=== PATIENT | female | born 1970 | race African-American/Black ===

== ENCOUNTER 2020-02-17 16:42 | Observation (INO) | payer OTHER ==
[~2020-02-17] VITALS: Ht 160 cm; Wt 102.1 kg
[2020-02-17] MEDS ORDERED: DIPHENHYDRAMINE HCL INJ 50 MG/ML VIAL IV ONE (17:45)
[2020-02-17] MEDS ORDERED: ONDANSETRON HCL INJ 2MG/ML 2ML 2 MG/ML VIAL IV PRN (17:45)
[2020-02-17] MEDS ORDERED: ACETAMINOPHEN 325 MG TAB PO PRN (17:45)
[2020-02-17] MEDS ORDERED: SODIUM CHLORIDE 0.9% 250ML 250 ML IV ONE (17:45)
[2020-02-17] MEDS ORDERED: ACETAMINOPHEN 325 MG TAB PO ONE (18:00)
[2020-02-17] MEDS ORDERED: FAMOTIDINE 20 MG/2 ML VIAL IV SCH (18:00)
[2020-02-17] MEDS ORDERED: IRON PILLS (18:22)
[2020-02-17] MEDS ORDERED: OMEPRAZOLE20 MG PO (18:22)
--- NOTE | 2020-02-17 19:30 | NUR ---
pt arrived via ems stretcher. pt made comfortable and oriented to rm. no ss of distress noted upon admission. no co pain at time. right ac 20 cdi. hx obtained at time. will cont to follow poc. call carney within reach.
[2020-02-17 20:39] LABS: % IRON SATURATION 3 % (15-50); IRON 11 ug/dL (50-170); TOTAL IRON BINDING CAPACITY 438 ug/dL (261-478); TRANSFERRIN 313 mg/dL (180-382)
[2020-02-17 20:49] VITALS: BP 113/58
[2020-02-17 21:00] VITALS: BP 113/58
[2020-02-17] MEDS ORDERED: ZOLPIDEM TARTRATE 5 MG TAB PO PRN (21:00)
[2020-02-17 21:08] VITALS: BP 113/58
[2020-02-17 21:13] LABS: FERRITIN < 1.00 ng/mL (4.63-204.00)
--- NOTE | 2020-02-17 21:36 | NUR ---
spoke to dr velazquez regarding medication. new orders received.
[2020-02-17] MEDS ORDERED: SODIUM CHLORIDE 0.9% 250ML 250 ML ONE (21:49)
--- NOTE | 2020-02-17 22:15 | NUR ---
blood transfusion initiated at time. nurse in rm first 15 min. no ss of reaction or distress noted. call carney within reach.
[2020-02-18 00:15] VITALS: BP 106/51
--- NOTE | 2020-02-18 00:30 | NUR ---
blood transfusion complete. pt tolerated well. no distress noted. call carney within reach.
--- NOTE | 2020-02-18 01:00 | NUR ---
blood transfusion initiated at time. nurse in rm first 15 min. no ss of reaction or distress noted. call carney within reach.
--- NOTE | 2020-02-18 03:10 | NUR ---
blood transfusion complete. pt tolerated well. no distress noted. call carney within reach.
[2020-02-18 04:24] VITALS: BP 111/55
--- NOTE | 2020-02-18 04:26 | NUR ---
pt resting. no ss of distress noted. call carney within reach.
[2020-02-18 06:12] LABS: BASOPHILS # (AUTO) 0.1 (0.0-0.1); BASOPHILS % 0.9 % (0.0-1.0); EOSINOPHILS # (AUTO) 0.4 (0.0-0.4); EOSINOPHILS % 6.9 % (0.0-6.0); LYMPHOCYTES # (AUTO) 1.7 (1.0-3.2); LYMPHOCYTES % 30.4 % (18.0-39.1); MEAN CORPUSCULAR HGB CONC 25.7 g/dL (31-35); MEAN CORPUSCULAR VOLUME 62.3 fL (81-99); MONOCYTES # (AUTO) 0.6 (0.2-0.8); MONOCYTES % 10.8 % (4.4-11.3); NEUTROPHILS # (AUTO) 2.8 (2.1-6.9); NEUTROPHILS % 50.6 % (38.7-80.0); PLATELET COUNT 321 x10e3/uL (140-360); RED BLOOD COUNT 3.63 x10e6/uL (3.6-5.1); RED CELL DISTRIBUTION WIDTH 28.3 % (11.7-14.4)
[2020-02-18 06:20] LABS: HEMATOCRIT 22.6 % (34.2-44.1); HEMOGLOBIN 5.8 g/dL (12.0-16.0)
--- NOTE | 2020-02-18 06:38 | NUR ---
spoke to dr velazquez regarding lab results. new orders received. will notify oncoming nurse.
--- NOTE | 2020-02-18 07:00 | NUR ---
BEDSIDE SHIFT REPORT RECEIVED FROM THE PREMIX OPERATOR CONCENTRATE RN. EDUCATED PT ABOUT FALL PRECAUTIONS. INSTRUCTED PT TO USE CALL LIGHT FOR ALL THE NEEDS. PT VERBALIZED UNDERSTANDING. CALL LIGHT WITH IN EASY REACH. BED IS LOW AND LOCKED. SIDE RAILS X2. PT DENIES NEEDS AT THIS TIME.
[2020-02-18] MEDS ORDERED: SODIUM CHLORIDE 0.9% 250ML 250 ML IV ONE (07:15)
[2020-02-18 07:36] VITALS: BP 100/48
--- NOTE | 2020-02-18 08:00 | NUR ---
paged lab regarding blood transfusion. lab will call back when blood is ready.
[2020-02-18 09:00] VITALS: BP 100/48
--- NOTE | 2020-02-18 09:50 | NUR ---
NAVEED SCHULTZ REGARDING BLOOD TRANSFUSION ORDER. NOT READY WILL CALL BACK PER MELISSA Addendum: 02/18/20 at 1037 by Hanh Gambino RN WILL CALL BACK PER NEVILLE Monsalve
[2020-02-18] MEDS ORDERED: SODIUM CHLORIDE 0.9% 250ML 250 ML ONE ×2 (11:12→14:42)
--- NOTE | 2020-02-18 11:15 | NUR ---
BLOOD TRANSFUSION STARTED. VERIFICATION DONE BY 2 RN AT BEDSIDE. PT IS OKAY TO START BLOOD TRANSFUSION. PT DENIES NEEDS AT THIS TIME.
[2020-02-18 11:19] VITALS: BP 104/47
[2020-02-18 11:58] LABS: ANISOCYTOSIS SLIGHT; HYPOCHROMASIA SLIGHT
--- NOTE | 2020-02-18 13:45 | NUR ---
BLOOD TRANSFUSION COMPLETED. PT TOLERATED WELL. NO DISTRESS NOTED. PT DENIED FURTHER NEEDS.
--- NOTE | 2020-02-18 15:00 | NUR ---
BLOOD TRANSFUSION STARTED. VERIFICATION DONE BY 2 RN. PT DENIES NEEDS AT THIS TIME.
[2020-02-18 15:30] VITALS: BP 106/53
[2020-02-18] MEDS ORDERED: IRON SUCROSE 100 MG in SODIUM CHLORIDE 0.9% 100 ML 100 ML IV SCH (17:00)
--- NOTE | 2020-02-18 17:45 | NUR ---
BLOOD TRANSFUSION COMPLETED. NO DISTRESS NOTED. PT TOLERATED WELL. PT DENIED FURTHER NEEDS.
[2020-02-18] MEDS ORDERED: SODIUM CHLORIDE 0.9% 50ML 50 ML ONE (18:16)
--- NOTE | 2020-02-18 18:34 | NUR ---
BELGICA MIRANDA D/C PT PER DR. VALENTIN. NO PRESCRIPTIONS PER THE
--- NOTE | 2020-02-18 18:50 | NUR ---
BEDSIDE SHIFT REPORT GIVEN TO THE LIBRARY SERIALS ASSISTANT RN. IRON TRANSFUSION GOING ON. D/C PT AFTER IRON TRANSFUSION COMPLETED PER DR. VALENTIN. PT DENIED FURTHER NEEDS.
--- NOTE | 2020-02-18 19:45 | NUR ---
V/S STABLE.ASSESSMENT DONE.NO RESP.DISTRESS.NO PAIN VOICED.IV CANNULA REMOVED AND APPLIED PRESSURE DRESSING .ESCORTED TO VECHICLE SAFELY.
--- NOTE | 2020-03-03 21:48 | Discharge Summary ---
PRIMARY CARE DOCTOR: Dr. Hector Bautista. FINAL DIAGNOSES: 1. Severe symptomatic iron deficiency anemia due to menorrhagia. 2. Morbid obesity. CONSULTANTS: None. PROCEDURES/STUDIES PERFORMED: 4 units of packed red blood cells transfusion. HISTORY: Per H and P. HOSPITAL COURSE: The patient was transfused with 4 units, also got iron infusion, felt better and was discharged home. CONDITION ON DISCHARGE: Improved. DISCHARGE MEDICATIONS: Please see medication reconciliation form. Nidaching MD LEO Tsang/TAMANNA /[id number] cc: [facility]
== END 2020-02-18 19:40 | disposition home or self-care (01) ==
LOC: FSED 16:42 → ERHOLD 17:39 → MED/SURG3 19:36
PROVIDERS: ADMIT Internal Medicine; ATTEND Internal Medicine
DX: D50.9 Iron deficiency anemia, unspecified (principal); N92.0 Excessive and frequent menstruation with regular cycle; R51 Headache; E66.01 Morbid (severe) obesity due to excess calories; Z68.38 Body mass index [BMI] 38.0-38.9, adult
CPT/HCPCS: 36415 ×2; 82607; 82728; 82746; 83540; 84443; 84466; 85025; 85045; 86850; 86900; 86920; 99284; G0378 ×2; J1756; J7050 ×2; P9016 ×2; J2405

== ENCOUNTER 2020-08-01 09:04 | Observation (INO) | payer OTHER ==
[~2020-08-01] VITALS: Ht 160 cm; Wt 102.1 kg
[~2020-08-01 09:04] MED LIST: IRON PILLS; OMEPRAZOLE20 MG PO
--- OUTSIDE RECORDS SUMMARY | 2020-08-01 09:33 | XMS REPORT | Continuity of Care Document ---
Author Author [facility] t Organization [facility] Address [address] [place] [address] Dr. Kaufman [address] [place] [address] Phone Unavailable Care Team Providers Care Garage Supervisor Name Role Phone CARI DEVINE, LOAN PCP Unavailable Payers Payer Name Policy Type Policy Number Effective Date Expiration Date Bandar Scott o [id number] 2019 00:00:00 2020 00:0 0:00 [facility] Problems Condition Name Condition Details Condition Category Status Onset Date Resolution Date Last Treatment Date Treating Clinician Comments Source DYSPNEA, UNSPECIFIED Problem Active [facility] IRON DEFICIENCY ANEMIA SECONDARY TO BLOOD LOSS (CHRONIC) Problem Active [facility] WEAKNESS Problem Active [facility] Allergies, Adverse Reactions, Alerts This patient has no known allergies or adverse reactions. Medications Ordered Medication Name Filled Medication Name Start Date Stop Da te Current Medication? Ordering Clinician Indication Dosage Frequency Signature (SIG) Comments Components Source Iron Pills Iron Pills Yes [facility] Omeprazole 20 Mg Capsule. Omeprazole 20 Mg Capsule.dr Temple Daily [facility] Procedures This patient has no known procedures. Encounters Start Date/Time End Date/Time [facility]counter Type [facility] En[facility] ID Source 2020-02-17 17:39:00 2020-02-18 19:40:00 Discharged Inpatient (obs) [facility] [id number] [facility] Results Test Description Test Time Test Comments Results Result Comments Source Folate 2020-02-19 03:42:00 Test Item Folate (test code = 2284-8) 6.8 >3.0 A serum folate concentration of less than 3.1 ng/mL isconsidered to represent cl inical deficiency.Performed at: - Lab[address] [place] , [place] [id number] Director: Maycol Keita MD, Phone: [phone] [facility]'s HospitalHypochromasia2020-03-24 11:59:00* Test Item Value Reference Range Interpretation Comments Hypochromasia (test code = 728-6) SLIGHT [facility] HospitalAnisocytosis2020-03-24 11:59:00* Test Item Value Reference Range Interpretation Comments Anisocytosis (test code = 702-1) SLIGHT [facility] HospitalWhite Blood [id number] 06:21:00* Test Item Value Reference Range Interpretation Comments White Blood Count (test code = 6690-2) 5.53 4.8-10.8 [facility] HospitalRed Blood [id number] 06:21:00* Test Item Value Reference Range Interpretation Comments Red Blood Count (test code = 789-8) 3.63 3.6-5.1 [facility] HospitalHemoglobin2020-03-24 06:21:00* Test Item Value Reference Range Interpretation Comments Hemoglobin (test code = 54241-1) 5.8 12.0-16.0 LL Results repeated and called to SOPHIE QUIROZ at 0617 on 02/18/20 by Asher Dalton. Read back and verified.[facility] HospitalHematocrit 2020-02-18 06:21:00* Test Item Value Reference Range Interpretation Comments Hematocrit (test code = 4544-3) 22.6 34.2-44.1 L Results repeated and called to SOPHIE at 0617 on 02/18/20 by Asher Dalton. Read back and verified.[facility] HospitalMean Corpuscular Prcebj2423-12-55 06:21:00* Test Item Value Reference Range Interpretation Comments Mean Corpuscular Volume (test code = 787-2) 62.3 81-99 L [facility] HospitalMean Corpuscular Vebrenisux4895-40-71 06:21:00* Test Item Value Reference Range Interpretation Comments Mean Corpuscular Hemoglobin (test code = 785-6) 16.0 28-32 L [facility] HospitalMean Corpuscular Hemoglobin Concent 2020-02-18 06:21:00* Test Item Value Reference Range Interpretation Comments Mean Corpuscular Hemoglobin Concent (test code = 786-4) 25.7 31-35 L [facility] HospitalRed Cell Distribution Xurgc1222-12-60 06:21:00* Test Item Value Reference Range Interpretation Comments Red Cell Distribution Width (test code = 95019-7) 28.3 11.7 -14.4 H [facility] HospitalPlatelet Tchrb9929-76-99 06:21:00* Test Item Value Reference Range Interpretation Comments Platelet Count (test code = 777-3) 321 140-360 [facility] HospitalNeutrophils (%) (Auto)2020-02-18 06:21:00 * Test Item Value Reference Range Interpretation Comments Neutrophils (%) (Auto) (test code = 20241-5) 50.6 38.7-80.0 [facility] HospitalLymphocytes (%) (Auto)2020-02-18 06:21:00 * Test Item Value Reference Range Interpretation Comments Lymphocytes (%) (Auto) (test code = 736-9) 30.4 18.0-39.1 [facility] HospitalMonocytes (%) (Auto)2020-02-18 06:21:00* Test Item Value Reference Range Interpretation Comments Monocytes (%) (Auto) (test code = 5905-5) 10.8 4.4-11.3 [facility] HospitalEosinophils (%) (Auto)2020-02-18 06:21:00 * Test Item Value Reference Range Interpretation Comments Eosinophils (%) (Auto) (test code = 713-8) 6.9 0.0-6.0 H [facility] HospitalBasophils (%) (Auto)2020-02-18 06:21:00* Test Item Value Reference Range Interpretation Comments Basophils (%) (Auto) (test code = 706-2) 0.9 0.0-1.0 [facility] HospitalIM GRANULOCYTES %2020-02-18 06:21:00* Test Item Value Reference Range Interpretation Comments IM GRANULOCYTES % (test code = IM GRANULOCYTES %) 0.4 0.0- 1.0 [facility] HospitalNeutrophils # (Auto)2020-02-18 06:21:00* Test Item Value Reference Range Interpretation Comments Neutrophils # (Auto) (test code = 751-8) 2.8 2.1-6.9 [facility] HospitalLymphocytes # (Auto)2020-02-18 06:21:00* Test Item Value Reference Range Interpretation Comments Lymphocytes # (Auto) (test code = 09787-8) 1.7 1.0-3.2 [facility] HospitalMonocytes # (Auto)2020-02-18 06:21:00* Test Item Value Reference Range Interpretation Comments Monocytes # (Auto) (test code = 742-7) 0.6 0.2-0.8 [facility] HospitalEosinophils # (Auto)2020-02-18 06:21:00* Test Item Value Reference Range Interpretation Comments Eosinophils # (Auto) (test code = 711-2) 0.4 0.0-0.4 [facility] HospitalBasophils # (Auto)2020-02-18 06:21:00* Test Item Value Reference Range Interpretation Comments Basophils # (Auto) (test code = 704-7) 0.1 0.0-0.1 [facility] HospitalAbsolute Immature Granulocyte (auto 2020-02-18 06:21:00* Test Item Value Reference Range Interpretation Comments Absolute Immature Granulocyte (auto (nishant t code = Absolute Immature Granulocyte (auto) 0.02 0-0.1 [facility] HospitalVitamin B12 Aujow2089-29-55 21:22:00* Test Item Value Reference Range Interpretation Comments Vitamin B12 Level (test code = 97558-5) 356 213-816 [facility] HospitalFerritin2020-03-23 21:13:00* Test Item Value Reference Range Interpretation Comments Ferritin (test code = 2276-4) < 1.00 4.63-204.00 L [facility] HospitalThyroid Stimulating Hormone (TSH) 2020-02-17 21:13:00* Test Item Value Reference Range Interpretation Comments Thyroid Stimulating Hormone (TSH) (test code = 22191-0) 0.320 0.350-4.940 L [facility] HospitalIron Gqkgb2714-60-84 20:42:00* Test Item Value Reference Range Interpretation Comments Iron Level (test code = 2498-4) 11 50-170 L [facility] HospitalTotal Iron Binding Gxtoyffc3104-28-40 20:42:00* Test Item Value Reference Range Interpretation Comments Total Iron Binding Capacity (test code = 2500-7) 438 261-4 78 [facility] HospitalPercent Iron Fvuaqrmyoj4667-19-10 20:42:00* Test Item Value Reference Range Interpretation Comments Percent Iron Saturation (test code = 2502-3) 3 15-50 L [facility] HospitalTransferrin2020-03-23 20:42:00* Test Item Value Reference Range Interpretation Comments Transferrin (test code = 3034-6) 313 180-382 [facility] HospitalPercent Reticulocyte Kkpor0894-73-06 20:28:00* Test Item Value Reference Range Interpretation Comments Percent Reticulocyte Count (test code = 48098-5) 1.0 0.8-2 .2 [facility]
--- NOTE | 2020-08-01 10:42 | NUR ---
unable to gain iv access with three nurses attempted. er md in room and discussed placing an EJ with patient. patient gave verbal concent to placing EJ. 18g to right EJ placed, blood work drawn and iv flushed easily.
[2020-08-01 10:57] LABS: BASOPHILS # (AUTO) 0.1 (0.0-0.1); BASOPHILS % 1.4 % (0.0-1.0); EOSINOPHILS # (AUTO) 0.2 (0.0-0.4); LYMPHOCYTES # (AUTO) 1.6 (1.0-3.2); LYMPHOCYTES % 28.6 % (18.0-39.1); MEAN CORPUSCULAR HEMOGLOBIN 15.1 pg (28-32); MEAN CORPUSCULAR HGB CONC 24.9 g/dL (31-35); MEAN CORPUSCULAR VOLUME 60.8 fL (81-99); MONOCYTES # (AUTO) 0.6 (0.2-0.8); MONOCYTES % 11.4 % (4.4-11.3); NEUTROPHILS % 54.4 % (38.7-80.0); PLATELET COUNT 637 x10e3/uL (140-360); RED BLOOD COUNT 4.23 x10e6/uL (3.6-5.1); RED CELL DISTRIBUTION WIDTH 19.2 % (11.7-14.4)
[2020-08-01 11:06] LABS: HEMATOCRIT 25.7 % (34.2-44.1); HEMOGLOBIN 6.4 g/dL (12.0-16.0)
[2020-08-01 11:12] LABS: PARTIAL THROMBOPLASTIN TIME 31.5 seconds (23.8-35.5)
[2020-08-01 11:22] LABS: ALBUMIN 3.7 g/dL (3.5-5.0); ALKALINE PHOSPHATASE 80 IU/L (40-150); ANION GAP 14.9 mmol/L (8-16); BLOOD UREA NITROGEN 6 mg/dL (7-26); BUN/CREATININE RATIO 8 (6-25); CARBON DIOXIDE 21 mmol/L (22-29); CHLORIDE 106 mmol/L (98-107); CREATININE, SERUM 0.74 mg/dL (0.57-1.11); EST GLOMERULAR FILTRATION RATE > 60 ML/MIN (60-); GLUCOSE 81 mg/dL (74-118); POTASSIUM 3.9 mmol/L (3.5-5.1); SODIUM 138 mmol/L (136-145)
[2020-08-01 11:23] LABS: ALANINE AMINOTRANSFERASE < 6 IU/L (0-55)
[2020-08-01] MEDS ORDERED: ONDANSETRON HCL INJ 2MG/ML 2ML 2 MG/ML VIAL IV PRN (11:30)
[2020-08-01] MEDS ORDERED: SODIUM CHLORIDE 0.9% 1000ML 1,000 ML IV SCH (11:30)
--- OUTSIDE RECORDS SUMMARY | 2020-08-01 11:34 | XMS REPORT | Continuity of Care Document ---
Author Author [facility] t Organization [facility] Address [address] [place] [address] Dr. Kaufman [address] [place] [address] Phone Unavailable Care Team Providers Care First Aid Director Name Role Phone CARI DEVINE, LOAN PCP Unavailable Payers Payer Name Policy Type Policy Number Effective Date Expiration Date Bandar Scott o [id number] 2019 00:00:00 2020 00:0 0:00 [facility] Problems Condition Name Condition Details Condition Category Status Onset Date Resolution Date Last Treatment Date Treating Clinician Comments Source DYSPNEA, UNSPECIFIED Problem Active [facility] IRON DEFICIENCY ANEMIA SECONDARY TO BLOOD LOSS (CHRONIC) Problem Active [facility] WEAKNESS Problem Active [facility] Allergies, Adverse Reactions, Alerts This patient has no known allergies or adverse reactions. Medications Ordered Medication Name Filled Medication Name Start Date Stop Da te Current Medication? Ordering Clinician Indication Dosage Frequency Signature (SIG) Comments Components Source Iron Pills Iron Pills Yes [facility] Omeprazole 20 Mg Capsule. Omeprazole 20 Mg Capsule.dr Temple Daily [facility] Procedures This patient has no known procedures. Encounters Start Date/Time End Date/Time Encounter Type [facility] Encounter ID Source 2020-02-17 17:39:00 2020-02-18 19:40:00 Discharged Inpatient (obs) [facility] [id number] [facility] Results Test Description Test Time Test Comments Results Result Comments Source Folate 2020-02-19 03:42:00 Test Item Folate (test code = 2284-8) 6.8 >3.0 A serum folate concentration of less than 3.1 ng/mL isconsidered to represent cl inical deficiency.Performed at: - Lab[address] [place] , [place] [id number] Director: Maycol Keita MD, Phone: [phone] Creek Surgical HospitalHypochromasia2020-03-24 11:59:00* Test Item Value Reference Range Interpretation Comments Hypochromasia (test code = 728-6) SLIGHT [facility] HospitalAnisocytosis2020-03-24 11:59:00* Test Item Value Reference Range Interpretation Comments Anisocytosis (test code = 702-1) SLIGHT [facility] HospitalWhite Blood Xqbex3404-21-01 06:21:00* Test Item Value Reference Range Interpretation Comments White Blood Count (test code = 6690-2) 5.53 4.8-10.8 [facility] HospitalRed Blood Knllo0068-95-20 06:21:00* Test Item Value Reference Range Interpretation Comments Red Blood Count (test code = 789-8) 3.63 3.6-5.1 [facility] HospitalHemoglobin2020-03-24 06:21:00* Test Item Value Reference Range Interpretation Comments Hemoglobin (test code = 21229-5) 5.8 12.0-16.0 LL Results repeated and called to SOPHIE QUIROZ at 0617 on 02/18/20 by Asher Dalton. Read back and verified.[facility] HospitalHematocrit 2020-02-18 06:21:00* Test Item Value Reference Range Interpretation Comments Hematocrit (test code = 4544-3) 22.6 34.2-44.1 L Results repeated and called to SOPHIE at 0617 on 02/18/20 by Asher Dalton. Read back and verified.[facility] HospitalMean Corpuscular Gtzlzz5909-31-49 06:21:00* Test Item Value Reference Range Interpretation Comments Mean Corpuscular Volume (test code = 787-2) 62.3 81-99 L [facility] HospitalMean Corpuscular Wxapefohto8971-37-37 06:21:00* Test Item Value Reference Range Interpretation Comments Mean Corpuscular Hemoglobin (test code = 785-6) 16.0 28-32 L [facility] HospitalMean Corpuscular Hemoglobin Concent 2020-02-18 06:21:00* Test Item Value Reference Range Interpretation Comments Mean Corpuscular Hemoglobin Concent (test code = 786-4) 25.7 31-35 L [facility] HospitalRed Cell Distribution Iagxy6401-59-17 06:21:00* Test Item Value Reference Range Interpretation Comments Red Cell Distribution Width (test code = 15007-3) 28.3 11.7 -14.4 H [facility] HospitalPlatelet Rdeva1624-39-98 06:21:00* Test Item Value Reference Range Interpretation Comments Platelet Count (test code = 777-3) 321 140-360 [facility] HospitalNeutrophils (%) (Auto)2020-02-18 06:21:00 * Test Item Value Reference Range Interpretation Comments Neutrophils (%) (Auto) (test code = 14740-8) 50.6 38.7-80.0 [facility] HospitalLymphocytes (%) (Auto)2020-02-18 06:21:00 * Test Item Value Reference Range Interpretation Comments Lymphocytes (%) (Auto) (test code = 736-9) 30.4 18.0-39.1 [facility] HospitalMonocytes (%) (Auto)2020-02-18 06:21:00* Test Item Value Reference Range Interpretation Comments Monocytes (%) (Auto) (test code = 5905-5) 10.8 4.4-11.3 [facility] HospitalEosinophils (%) (Auto)2020-02-18 06:21:00 * Test Item Value Reference Range Interpretation Comments Eosinophils (%) (Auto) (test code = 713-8) 6.9 0.0-6.0 H [facility] HospitalBasophils (%) (Auto)2020-02-18 06:21:00* Test Item Value Reference Range Interpretation Comments Basophils (%) (Auto) (test code = 706-2) 0.9 0.0-1.0 [facility] HospitalIM GRANULOCYTES %2020-02-18 06:21:00* Test Item Value Reference Range Interpretation Comments IM GRANULOCYTES % (test code = IM GRANULOCYTES %) 0.4 0.0- 1.0 [facility] HospitalNeutrophils # (Auto)2020-02-18 06:21:00* Test Item Value Reference Range Interpretation Comments Neutrophils # (Auto) (test code = 751-8) 2.8 2.1-6.9 [facility] HospitalLymphocytes # (Auto)2020-02-18 06:21:00* Test Item Value Reference Range Interpretation Comments Lymphocytes # (Auto) (test code = 89700-3) 1.7 1.0-3.2 [facility] HospitalMonocytes # (Auto)2020-02-18 06:21:00* Test Item Value Reference Range Interpretation Comments Monocytes # (Auto) (test code = 742-7) 0.6 0.2-0.8 [facility] HospitalEosinophils # (Auto)2020-02-18 06:21:00* Test Item Value Reference Range Interpretation Comments Eosinophils # (Auto) (test code = 711-2) 0.4 0.0-0.4 [facility] HospitalBasophils # (Auto)2020-02-18 06:21:00* Test Item Value Reference Range Interpretation Comments Basophils # (Auto) (test code = 704-7) 0.1 0.0-0.1 [facility] HospitalAbsolute Immature Granulocyte (auto 2020-02-18 06:21:00* Test Item Value Reference Range Interpretation Comments Absolute Immature Granulocyte (auto (nishant t code = Absolute Immature Granulocyte (auto) 0.02 0-0.1 [facility] HospitalVitamin B12 Npkew1767-76-15 21:22:00* Test Item Value Reference Range Interpretation Comments Vitamin B12 Level (test code = 15117-8) 356 213-816 [facility] HospitalFerritin2020-03-23 21:13:00* Test Item Value Reference Range Interpretation Comments Ferritin (test code = 2276-4) < 1.00 4.63-204.00 L [facility] HospitalThyroid Stimulating Hormone (TSH) 2020-02-17 21:13:00* Test Item Value Reference Range Interpretation Comments Thyroid Stimulating Hormone (TSH) (test code = 99312-8) 0.320 0.350-4.940 L [facility] HospitalIron Lfyxo0675-88-88 20:42:00* Test Item Value Reference Range Interpretation Comments Iron Level (test code = 2498-4) 11 50-170 L [facility] HospitalTotal Iron Binding Hidbmkqd7378-56-49 20:42:00* Test Item Value Reference Range Interpretation Comments Total Iron Binding Capacity (test code = 2500-7) 438 261-4 78 [facility] HospitalPercent Iron Nlsckhrhsg3842-39-49 20:42:00* Test Item Value Reference Range Interpretation Comments Percent Iron Saturation (test code = 2502-3) 3 15-50 L [facility] HospitalTransferrin2020-03-23 20:42:00* Test Item Value Reference Range Interpretation Comments Transferrin (test code = 3034-6) 313 180-382 [facility] HospitalPercent Reticulocyte Bkcwe7940-06-30 20:28:00* Test Item Value Reference Range Interpretation Comments Percent Reticulocyte Count (test code = 15888-2) 1.0 0.8-2 .2 [facility]
[2020-08-01 11:54] LABS: INR 1.04; PROTHROMBIN TIME 14.1 seconds (11.9-14.5)
[2020-08-01 12:06] VITALS: BP 115/74
[2020-08-01] MEDS ORDERED: ACETAMINOPHEN 325 MG TAB PO PRN (14:30)
[2020-08-01 15:11] LABS: % IRON SATURATION 2 % (15-50); IRON 11 ug/dL (50-170); TOTAL IRON BINDING CAPACITY 441 ug/dL (261-478); TRANSFERRIN 315 mg/dL (180-382)
[2020-08-01] MEDS ORDERED: IRON SUCROSE 100 MG in SODIUM CHLORIDE 0.9% 100 ML 100 ML IV SCH (16:00)
[2020-08-01 16:09] VITALS: BP 127/61
--- NOTE | 2020-08-01 16:17 | History and Physical ---
PCP: Dr. Bautista at [facility]. CHIEF COMPLAINT: Abnormal labs, was advised to come to the ER. HISTORY OF PRESENT ILLNESS: This is a 50-year-old female with past medical history of GERD and chronic anemia due to heavy menstrual cycle. She reported was feeling tired and shortness of breath, so went to see her primary care doctor, Dr. Bautista at [facility], had general lab work and was called yesterday to go into the ER, as her hemoglobin was 6.2 and would need transfusions. She denies any shortness of breath, chest pain, abdominal pain, hematuria, melena, nausea, or vomiting. In the ER, her hemoglobin was 6.4, hematocrit 25.7, was admitted for blood transfusion. PAST MEDICAL HISTORY: 1. Chronic anemia. 2. GERD. PAST SURGICAL HISTORY: 1. She reports gastric sleeve. 2. x2. 3. Right ovary removal and adenoids removal as a child. FAMILY MEDICAL HISTORY: She reports mother has hypertension. SOCIAL HISTORY: She denies any tobacco, alcohol, or illicit drug use. She is working. ALLERGIES: NO KNOWN DRUG ALLERGIES. REVIEW OF SYSTEMS: Twelve systems reviewed and negative except as reported in HPI. PHYSICAL EXAMINATION: VITAL SIGNS: Temperature 98.5, pulse is 89, respirations 16, blood pressure 115/74, and pulse ox is 97% on room air. GENERAL: No acute distress. HEENT: Normocephalic and atraumatic. NECK: Supple. LUNGS: Clear to auscultation. CARDIOVASCULAR: Regular rate and rhythm. GI: Soft and nontender. Obese. MUSCULOSKELETAL: Moves all extremities. No edema. NEUROLOGIC: Alert, awake, and oriented x3. PSYCH: Calm. LABORATORY DATA: WBC 5.52, hemoglobin 6.4, hematocrit 25.7, and platelets 637. Sodium 138, potassium 3.9, CO2 21, BUN is 6, creatinine 0.74, and calcium 8.0. Iron 11 and TIBC 441. AST 8 and ALT less than 6. Albumin 3.7. PT 14.1, INR 1.04, and APTT 31.5. Coronavirus PCR is pending. IMPRESSION: 1. Enprt-rj-isgexlt anemia. Hemoglobin 6.4 and iron 11. We will transfuse 2 units of PRBCs and iron IV x1 daily. Repeat labs in a.m. She reports does not have any melena, mostly due to heavy periods. We will follow up as outpatient with her detention sergeant and PCP. 2. Gastroesophageal reflux disease. Continue PPI. 3. Morbid obesity. Status post gastric sleeve, BMI of 39.9. 4. Deep vein thrombosis prophylaxis. SCDs due to anemia. Dictated by CIARA Warner Ann Schultz MD MY/MODL /[id number]
[2020-08-01 16:25] VITALS: BP 127/61
[2020-08-01 16:29] VITALS: BP 127/61
--- NOTE | 2020-08-01 19:45 | NUR ---
Received patient from day nurse, patient is alert and oriented x 3. patient is stable denies any concerns at this time, will continue to monitor.
[2020-08-01 20:27] VITALS: BP 126/57
[2020-08-01 21:45] VITALS: BP 126/57
[2020-08-02] VITALS: BP 141/75
--- NOTE | 2020-08-02 | NUR ---
Patient rounded, no concerns
[2020-08-02 04:20] VITALS: BP 123/71
[2020-08-02 06:26] LABS: BASOPHILS # (AUTO) 0.1 (0.0-0.1); BASOPHILS % 1.5 % (0.0-1.0); EOSINOPHILS # (AUTO) 0.3 (0.0-0.4); EOSINOPHILS % 4.2 % (0.0-6.0); HEMATOCRIT 29.8 % (34.2-44.1); HEMOGLOBIN 8.1 g/dL (12.0-16.0); LYMPHOCYTES # (AUTO) 1.4 (1.0-3.2); MEAN CORPUSCULAR HEMOGLOBIN 17.7 pg (28-32); MEAN CORPUSCULAR HGB CONC 27.2 g/dL (31-35); MEAN CORPUSCULAR VOLUME 65.2 fL (81-99); MONOCYTES # (AUTO) 0.7 (0.2-0.8); MONOCYTES % 10.7 % (4.4-11.3); NEUTROPHILS # (AUTO) 3.7 (2.1-6.9); NEUTROPHILS % 60.3 % (38.7-80.0); PLATELET COUNT 523 x10e3/uL (140-360); RED BLOOD COUNT 4.57 x10e6/uL (3.6-5.1); RED CELL DISTRIBUTION WIDTH 22.5 % (11.7-14.4)
[2020-08-02 06:51] LABS: ANION GAP 13.7 mmol/L (8-16); BLOOD UREA NITROGEN 7 mg/dL (7-26); BUN/CREATININE RATIO 9 (6-25); CALCIUM 8.3 mg/dL (8.4-10.2); CARBON DIOXIDE 22 mmol/L (22-29); CHLORIDE 106 mmol/L (98-107); CREATININE, SERUM 0.78 mg/dL (0.57-1.11); EST GLOMERULAR FILTRATION RATE > 60 ML/MIN (60-); GLUCOSE 83 mg/dL (74-118); POTASSIUM 3.7 mmol/L (3.5-5.1); SODIUM 138 mmol/L (136-145)
--- NOTE | 2020-08-02 07:20 | NUR ---
PATIENT IS ALERT, AWAKE, AND IN STABLE CONDITION WITH NO S/S OF RESPIRATORY DISTRESS- NO PAIN VOICED. TELEMETRY APPLIED. CALL LIGHT IS WITHIN REACH, PATIENT INSTRUCTED TO CALL FOR ASSISTANCE NEEDED.
--- NOTE | 2020-08-02 07:22 | NUR ---
Patient voiced need to leave hospital before 0730. Patient has iron due at 1600. Spoke to Dr. Schultz and states Iron due can be administered now and will take a look at patient's chart for discharge.
[2020-08-02 08:00] VITALS: BP 130/77
[2020-08-02 08:45] VITALS: BP 130/77
[2020-08-02] MEDS ORDERED: IRON SUCROSE 100 MG in SODIUM CHLORIDE 0.9% 100 ML 100 ML IV SCH (09:00)
[2020-08-02] MEDS ORDERED: PANTOPRAZOLE SOD 40 MG TABEC PO SCH (09:00)
[2020-08-02 09:59] LABS: ELLIPTOCYTE, RBC SLIGHT; HYPOCHROMASIA MODERATE; MICROCYTOSIS MODERATE; PLATELET ESTIMATE SLIGHTLY INCREASED; PLATELET MORPHOLOGY COMMENT NORMAL; RBC MORPHOLOGY COMMENT ABNORMAL
[2020-08-02 10:00] LABS: ANISOCYTOSIS MODERATE; POIKILOCYTOSIS MODERATE; TEAR DROP CELLS FEW
--- NOTE | 2020-08-02 11:55 | NUR ---
PATIENT DISCHARGE HOME- PATIENT OFF THE UNIT AT 1143 PER AMBULATION WITH RN. PATIENT IS IN STABLE CONDITION WITH NO S/S OF RESPIRATORY DISTRESS. NO PAIN VOICED. IV REMOVED WITH TIP INTACT. DISCHARGE INSTRUCTIONS GIVEN TO THE PATIENT. ALL PERSONAL ITEMS WERE TAKEN BY THE PATIENT.
--- NOTE | 2020-08-03 00:32 | Discharge Summary ---
PRIMARY CARE PHYSICIAN: Dr. Bautista at [facility]. FINAL DISCHARGE DIAGNOSES: 1. Xtiza-ia-eoqiqbk anemia. 2. Gastroesophageal reflux disease. 3. Morbid obesity, status post gastric sleeve. CONSULTANTS: None. PROCEDURES: Transfused 2 units of PRBCs and Venofer x2 IV. HISTORY: Per HPI. HOSPITAL COURSE: This is a 50-year-old female, who presented to the ER with complaints of tiredness and with reports of abnormal labs per her PCP. Hemoglobin upon arrival was 6.4. She received 2 units of PRBCs, iron was also low, so was given Venofer IV x2. She reports has heavy menstrual cycle and has had gastric sleeve and has had iron transfusions in the past, but since she just moved from [place], does not have a PCP or castables worker whom she could follow up with. Today, her hemoglobin is 8.1 and is feeling much better, she reports she has an appointment to see her PCP, who has set her up with castables worker and microelectronics assembler soon. She denies any shortness of breath, fatigue, chills, fever, nausea, or vomiting. PHYSICAL EXAMINATION: VITAL SIGNS: Temperature 98.1, pulse is 70, respirations 18, blood pressure 130/77, pulse ox is 99% on room air. GENERAL: No acute distress. Obese. HEENT: Normocephalic and atraumatic. NECK: Supple. LUNGS: Clear to auscultation. CARDIOVASCULAR: Regular rate and rhythm. GI: Soft and nontender. MUSCULOSKELETAL: Moves all extremities. No edema. NEUROLOGIC: Alert, awake, and oriented x3. PSYCH: Calm. CONDITION AT DISCHARGE: Improved and stable. DISCHARGE MEDICATIONS: Please see medication reconciliation list. FOLLOWUP: Follow up with PCP, castables worker, microelectronics assembler in 1 to 2 weeks. TIME SPENT: Total discharge time is 31 minutes. Dictated by CIARA Warner Ann Schultz MD MY/MODL /[id number] cc: Hector Bauitsta MD
== END 2020-08-02 11:43 | disposition home or self-care (01) ==
LOC: ER 09:20 → ERHOLD 11:21 → MED/SURG3 11:58
PROVIDERS: ADMIT Internal Medicine; ATTEND Internal Medicine
DX: D62 Acute posthemorrhagic anemia (principal); K21.9 Gastro-esophageal reflux disease without esophagitis; E66.01 Morbid (severe) obesity due to excess calories; Z68.39 Body mass index [BMI] 39.0-39.9, adult; Z98.84 Bariatric surgery status; Z11.59 Encounter for screening for other viral diseases
CPT/HCPCS: 36415 ×2; 80048; 80053; 83540; 84466; 85025 ×2; 85610; 85730; 86850; 86900; 86920; 99284; G0378 ×2; J1756 ×2; J7030; P9016; U0002